=== PATIENT | male | born 1975 | race African-American/Black ===

== ENCOUNTER 2023-07-27 17:50 | Emergency (ER) | payer OTHER ==
[~2023-07-27] VITALS: Ht 175.3 cm; Wt 84.8 kg
[2023-07-27 18:15] VITALS: BP 122/65; PULSE 108; RESP 16; TEMP 99; O2SAT 99
[2023-07-27] MEDS ORDERED: NIRM1TAB PO (18:20)
[2023-07-27] MEDS ORDERED: IBUP-2029 MT (18:20)
[2023-07-27] MEDS ORDERED: ACET-2708 MT (18:20)
== END 2023-07-27 18:57 | disposition home or self-care (01) ==
LOC: ER 17:50
DX: U07.1 COVID-19 (principal); F19.90 Other psychoactive substance use, unspecified, uncomplicated; Z98.890 Other specified postprocedural states
CPT/HCPCS: 99283